=== PATIENT | male | born 1980 | race American Indian/Alaskan Native ===

== ENCOUNTER 2016-10-10 19:55 | Observation (INO) | payer MEDICAID ==
[2016-10-10 20:00] VITALS: BMI 32.2
[2016-10-10 20:24] VITALS: RESP 18
[2016-10-10] MEDS ORDERED: TDAP Vaccine 0.5 mL Syr IM ONE (20:36)
--- NOTE | 2016-10-10 20:58 | ED PDOC ---
Arrival/HPI - General Chief Complaint: Alcohol Ingestion Time Seen by Provider: 10/10/16 19:58 Historian: Patient - History of Present Illness Narrative History of Present Illness (Text): 10/10/16 20:00 Elkin Gallego 36 year old male brought in by EMS, who presents to the emergency department complaining of public intoxication prior to arrival. Patient admits to have been drinking alcohol. Patient states that he did trip and and fall, injuring his right shoulder and forehead. Patient denies loss of consciousness. Patient states that he feels fine, otherwise he denies any drug use, suicidal ideation, homicidal ideation, or any other complaint at this time. Time/Duration: Prior to Arrival Symptom Onset: Gradual Symptom Course: Unchanged Severity Level: Mild Activities at Onset: Light Context: Street Past Medical History - Provider Review Nursing Documentation Reviewed: Yes - Infectious Disease Hx of Infectious Diseases: None - Psychiatric Hx Substance Use: No - Anesthesia Hx Anesthesia: No Family/Social History - Physician Review Nursing Documentation Reviewed: Yes Family/Social History: No Known Family HX Smoking Status: Never Smoked Hx Alcohol Use: Yes Frequency of alcohol use: Few days per week Hx Substance Use: No Allergies/Home Meds Allergies/Adverse Reactions: Allergies shellfish derived Allergy (Severe, Verified 09/26/16 14:03) ANAPHYLAXIS Home Medications: Home Meds Medication Instructions Recorded Confirmed No Known Home Med 10/10/16 10/10/16 Review of Systems - Physician Review All systems were reviewed & negative as marked: Yes - Review of Systems Constitutional: absent: Fevers, Night Sweats Eyes: absent: Vision Changes ENT: absent: Hearing Changes Respiratory: absent: SOB, Cough Cardiovascular: absent: Chest Pain Gastrointestinal: absent: Abdominal Pain Genitourinary Male: absent: Urinary Output Changes Musculoskeletal: Other (right shoulder injury) Skin: Other (injury to forehead) Neurological: absent: Headache, Dizziness Endocrine: absent: Polyuria Hemo/Lymphatic: absent: Adenopathy Psychiatric: absent: Depression Physical Exam Vital Signs Reviewed: Yes Vital Signs Temp Pulse Resp BP Pulse Ox 10/10/16 22:29 97.9 F 96 H 18 122/64 98 10/10/16 19:55 97.8 F 98 H 18 122/78 96 Temperature: Afebrile Blood Pressure: Normal Pulse: Tachycardic Respiratory Rate: Normal Appearance: Positive for: Other (Intoxicated) Pain Distress: None Mental Status: Positive for: Alert and Oriented X 3 Finger Stick Blood Glucose: 84 - Systems Exam Head: Present: Abrasion (contusion to right lower forehead/old right supraorbital scar), Other (no periorbital tenderness) Pupils: Present: PERRL Extroacular Muscles: Present: EOMI Conjunctiva: Present: Normal Ears: Present: NORMAL TM Mouth: Present: Moist Mucous Membranes Pharnyx: Present: Normal Neck: Present: Normal Range of Motion Respiratory/Chest: Present: Clear to Auscultation, Good Air Exchange. No: Respiratory Distress, Accessory Muscle Use Cardiovascular: Present: Regular Rate and Rhythm, Normal S1, S2. No: Murmurs Abdomen: Present: Normal Bowel Sounds. No: Tenderness, Distention, Peritoneal Signs Back: Present: Normal Inspection Upper Extremity: Present: Neurovascularly Intact, Other ( skin abrasion to the right proximal forearm; slight dicomfort with raising right shoulder ) Lower Extremity: Present: Normal Inspection. No: Edema Neurological: Present: GCS=15, CN II-XII Intact, Speech Normal Skin: Present: Warm, Dry, Normal Color. No: Rashes Psychiatric: Present: Alert, Oriented x 3, Normal Insight, Normal Concentration Medical Decision Making - Lab Interpretations Lab Results: Lab Results 10/10/16 20:16: POC Glucose (mg/dL) 84 - RAD Interpretation Narrative RAD Interpretations (Text): CT Head shows: Brain: Ventricles are normal in size and configuration. There is no midline shift. There are no intraaxial or extra-axial mass lesions or areas of hemorrhage. There are no abnormal fluid collections. Mcnally-white differentiation is maintained. Ventricles: See above. Bones: Cranial vault is intact. There are age-indeterminate nasal bone fractures. There are age indeterminate fractures involving the right superior-lateral orbital rim. Soft tissues: There is a right frontal scalp hematoma. There is right periorbital soft tissue swelling. Sinuses: There is no acute sinusitis. There is mucoperiosteal thickening in the sinuses Ears and mastoids: Middle ears and mastoids are unremarkable Orbits: Globes are intact. There is an old right orbital floor fracture. There is an old right lamina papyracea fracture. Dental: Streak artifact from dental fillings degrades image quality. IMPRESSION: Right facial scalp hematoma with periorbital soft tissue swelling; on the right orbital floor and lamina papyracea fractures, intact globes; right orbital roof and nasal bone fractures; no acute intracranial abnormality. Administrative Services Specialist: Radiologist - Medication Orders Current Medication Orders: Discontinued Medications Tetanus/Reduced Diphtheria/Acell Pertussis (Boostrix Vaccine Inj) 0.5 ml IM .ONCE ONE Stop: 10/10/16 20:37 Last Admin: 10/10/16 20:50 Dose: 0.5 ml ED OBSERVATION Discharge: Yes Date of observation admission: 10/10/16 Time of observation admission: 20:35 - Observation admission statement Patient is being placed in observation because:: Impression: 36 year old male complaining of public intoxication prior to arrival Differential Diagnosis included but are not limited to: ETOH abuse - Goals of Observation Goals of observation are:: Plan: -- Head CT w/o contrast -- Right Shoulder X-ray -- Boostrix -- Reassess and disposition - Progress Note Progress Note: 10/10/16 22:37 Reviewed radiology, CT Head shows: Right facial scalp hematoma with periorbital soft tissue swelling; on the right orbital floor and lamina papyracea fractures, intact globes; right orbital roof and nasal bone fractures; no acute intracranial abnormality. 10/10/16 22:46 Pt states he feels fine, ambulatory in Emergency department with stead gait. CT scan results discussed with patient and patient's research agricultural engineer. History of old fractures. Pt will be d/c in the custody of his research agricultural engineer who will assume responsibility of patient. - Scribe Statement The provider has reviewed the documentation as recorded by the Halie Weeks Provider Scribe Attestation: All medical record entries made by the Scribbaldomero were at my direction and personally dictated by me. I have reviewed the chart and agree that the record accurately reflects my personal performance of the history, physical exam, medical decision making, and the department course for this patient. I have also personally directed, reviewed, and agree with the discharge instructions and disposition. Disposition/Present on Arrival - Present on Arrival Any Indicators Present on Arrival: No History of DVT/PE: No History of Uncontrolled Diabetes: No Urinary Catheter: No History of Decub. Ulcer: No History Surgical Site Infection Following: None - Disposition Have Diagnosis and Disposition been Completed?: Yes Diagnosis: Alcohol abuse, Forehead contusion, Abrasion, Shoulder strain Disposition: HOME/ ROUTINE Disposition Time: 22:43 Patient Plan: Discharge Condition: STABLE
--- NOTE | 2016-10-10 22:15 | CT ---
EXAM: CT Head Without Intravenous Contrast CLINICAL HISTORY: 36 years old, male; Pain; Headache; Additional info: Injury TECHNIQUE: Axial computed tomography images of the head/brain without intravenous contrast. This CT exam was performed using one or more of the following dose reduction techniques: automated exposure control, adjustment of the mA and/or kV according to patient size, and/or use of iterative reconstruction technique. EXAM DATE/TIME: 10/10/2016 8:35 PM COMPARISON: There are no prior studies for comparison. FINDINGS: Brain: Ventricles are normal in size and configuration. There is no midline shift. There are no intra-axial or extra-axial mass lesions or areas of hemorrhage. There are no abnormal fluid collections. Mcnally-white differentiation is maintained. Ventricles: See above. Bones: Cranial vault is intact. There are age-indeterminate nasal bone fractures. There are age indeterminate fractures involving the right superior-lateral orbital rim. Soft tissues: There is a right frontal scalp hematoma. There is right periorbital soft tissue swelling. Sinuses: There is no acute sinusitis. There is mucoperiosteal thickening in the sinuses Ears and mastoids: Middle ears and mastoids are unremarkable Orbits: Globes are intact. There is an old right orbital floor fracture. There is an old right lamina papyracea fracture. Dental: Streak artifact from dental fillings degrades image quality. IMPRESSION: Right facial scalp hematoma with periorbital soft tissue swelling; on the right orbital floor and lamina papyracea fractures, intact globes; right orbital roof and nasal bone fractures; no acute intracranial abnormality
[2016-10-10 22:30] VITALS: BP 122/64; PULSE 96; TEMP 97.9; O2SAT 98
--- NOTE | 2016-10-11 08:04 | RAD ---
PROCEDURE: Radiographs of the Right Shoulder HISTORY: injury COMPARISON: No prior FINDINGS: BONES: Normal. No fracture. JOINTS: Minor degenerative changes right acromioclavicular joint. SOFT TISSUES: Tiny calcification seen within the soft tissues immediately adjacent and superior to the right greater tuberosity consistent with calcific tendinitis or bursitis OTHER FINDINGS: None. IMPRESSION: No acute fractures. Findings suggest mild calcific tendinitis or bursitis
== END 2016-10-10 22:41 | disposition home or self-care (01) ==
LOC: ED 19:55 → EROBSV 20:35 → MERGE 20:35
PROVIDERS: ADMIT Emergency Medicine; ATTEND Emergency Medicine
DX: S00.83XA Contusion of other part of head, initial encounter (principal); S46.911A Strain of unspecified muscle, fascia and tendon at shoulder and upper arm level, right arm, initial encounter; S00.81XA Abrasion of other part of head, initial encounter; W01.0XXA Fall on same level from slipping, tripping and stumbling without subsequent striking against object, initial encounter; Y92.410 Unspecified street and highway as the place of occurrence of the external cause; Z23 Encounter for immunization; F10.10 Alcohol abuse, uncomplicated
CPT/HCPCS: 70450; 73030; 82948; 90471; 90715; 99283; G0378